=== PATIENT | male | born 1940 | race Caucasian/White ===

== ENCOUNTER 2020-07-07 05:21 | Inpatient (IN) | payer MEDICARE, BC ==
[2020-07-07] MEDS ORDERED: Morphine 4 MG/ML VIAL ONE (05:57)
[2020-07-07] MEDS ORDERED: Ondansetron PF 4 MG/2 ML Vial ONE (05:58)
[2020-07-07 06:00] LABS: #Eosinphils 0.2 thou/uL (0.0-0.7); #Lymphocytes 1.2 thou/uL (1.20-3.40); #Monocytes 0.7 thou/uL (0.11-0.59); #Neutrophils 13.7 thou/uL (1.40-6.50); %Basophils 0.2 % (0.0-1.0); %Lymphocytes 7.5 % (21.0-51.0); %Monocytes 4.6 % (0.0-10.0); %Neutrophils 86.7 % (42.0-75.0); Hemoglobin 14.4 g/dL (14.0-18.0); Mean Corpuscular Volume 90.7 fL (78.0-98.0); Mean Platelet Volume 7.5 fL (7.4-10.4); Platelet Count 217 thou/uL (130-400); RBC Distribution Width 12.6 % (11.5-14.5); Red Blood Cell (RBC) Count 4.81 mill/uL (4.70-6.10); White Blood Cell (WBC) Count 15.8 thou/uL (4.8-10.8)
[2020-07-07 06:21] LABS: ALT (SGPT) 307 U/L (8-55); AST (SGOT) 127 U/L (5-34); Albumin 4.1 g/dL (3.4-4.8); Alkaline Phosphatase 277 U/L (40-110); Anion Gap 15 mmol/L (10-20); BUN (Urea Nitrogen) 16 mg/dL (8.4-25.7); Bilirubin, Total 5.9 mg/dL (0.2-1.2); Calc. Creatinine Clearance 0 mL/min (70-130); Calcium 9.5 mg/dL (7.8-10.44); Carbon Dioxide 24 mmol/L (23-31); Chloride 102 mmol/L (98-107); Globulin 2.8 g/dL (2.4-3.5); Glucose 133 mg/dL (83-110); Potassium 3.7 mmol/L (3.5-5.1); Protein, Total 6.9 g/dL (5.8-8.1); Sodium 137 mmol/L (136-145)
[2020-07-07] MEDS ORDERED: diphenhydrAMINE 50 MG/ML VIAL ONE ×2 (06:35→09:33)
[2020-07-07 06:47] LABS: Lipase 11848 U/L (8-78)
[2020-07-07] MEDS ORDERED: Ondansetron PF 4 MG/2 ML Vial IVP PRN (09:20)
[2020-07-07] MEDS ORDERED: Ondansetron ODT 4 MG TAB PO PRN (09:20)
[2020-07-07] MEDS ORDERED: HYDROcodone/Acetaminophen 5/325 mg Tablet PO PRN ×2 (09:20)
[2020-07-07] MEDS ORDERED: Acetaminophen 650 MG Suppository PR PRN (09:20)
[2020-07-07] MEDS ORDERED: Acetaminophen 325 MG TAB PO PRN (09:20)
--- NOTE | 2020-07-07 09:24 | ULT ---
RIGHT UPPER QUADRANT ULTRASOUND: Date: 07/07/2020 INDICATION: Right upper quadrant pain. COMPARISON: Prior exam dated 12/07/2015. FINDINGS: There is gallbladder sludge with mild wall thickening present. No pericholecystic fluid is evident. N o sonographic Bettencourt's sign is reported; however, the patient is tender over the epigastric region. T he patient has had pain medication. The common bile duct is enlarged measuring 9.4 mm. There is a sma ll cystic lesion in the region of the pancreatic head measuring 1.3 x 1.3 cm, not previously seen. Ri ght kidney measures 11.7 cm without hydronephrosis or focal renal lesion. IMPRESSION: 1. Gallbladder sludge with new prominence of the common bile duct suspicious for distal obstructing process. Recommend further evaluation with consideration for a MRCP with and without contrast for fur ther evaluation. There is an additional cystic lesion seen within the pancreatic head not definitely seen on the comparison examination that can be furthered assessed on this exam. 2. Gallbladder sludge with gallbladder wall thickening with reported negative Bettencourt's sign; however , pain medication had been given to this patient. Findings are equivocal by right upper quadrant ultr asound for acute cholecystitis. POS: BH
--- NOTE | 2020-07-07 09:37 | PDOC.HHP ---
Hospitalist HPI abd pain History of Present Illness: Case of an 79y/o male with a pmhx of hld, htn and esophageal stricture who comes to hospital due to abdominal pain. patient states he was on his usual state of health until this last month when he started with some intermittent abdominal pain. since pain started patient refers has gotten more intense and occurring more frequently, is concentrated on epigastric area and radiates to R upper quadrant, he reports the intensity of pain varies from 3-10. has had some associated nausea, self provoked vomiting, denies fever chills diarrhea or dysuria. patient refers had a schedule EGD on the Jul, set up by pcp due to concerns this could be related to his stricture but yesterday nigh his pain was too intense for which he decided to comes to hospital for evaluation. at ed patient was diagnosed with pancreatitis and hospitalist was called for further evaluation and management. patient does reports that since yesterday he has started with some rash and itchiness Past History: PMHx: as above PSHx:none FHx: htn Social: denies alcohol tabacco or any other drug Hospitalist HPI ROS All other systems reviewed; all pertinent +/- noted in HPI/Subj Hospitalist Exam General Appearance: NAD, awake alert Eye: PERRL, anicteric sclera ENT: normocephalic atraumatic, no oropharyngeal lesions Neck: supple, symmetric, no JVD, no thyromegaly Heart: RRR, no murmur, no gallops, no rubs Respiratory: CTAB, no wheezes, no rales, no ronchi Gastrointestinal: soft, non-distended, normal bowel sounds, no palpable masses, tender to palpation Extremities: no cyanosis, no clubbing, no edema Skin: normal turgor, no lesions, no rashes Neurological: cranial nerve grossly intact, normal sensation to touch, no weakness Musculoskeletal: normal tone, normal strength, no muscle wasting Psychiatric: normal affect, normal behavior, A&O x 3 Hospitalist Results Result Diagrams: 07/07/20 05:37 07/07/20 05:37 Lab results: Laboratory Last Values WBC 15.8 thou/uL (4.8-10.8) H 07/07/20 05:37 RBC 4.81 mill/uL (4.70-6.10) 07/07/20 05:37 Hgb 14.4 g/dL (14.0-18.0) 07/07/20 05:37 Hct 43.6 % (42.0-52.0) 07/07/20 05:37 MCV 90.7 fL (78.0-98.0) 07/07/20 05:37 MCH 30.0 pg (27.0-31.0) 07/07/20 05:37 MCHC 33.0 g/dL (32.0-36.0) 07/07/20 05:37 RDW 12.6 % (11.5-14.5) 07/07/20 05:37 Plt Count 217 thou/uL (130-400) 07/07/20 05:37 MPV 7.5 fL (7.4-10.4) 07/07/20 05:37 Neutrophils % 86.7 % (42.0-75.0) H 07/07/20 05:37 Lymphocytes % 7.5 % (21.0-51.0) L 07/07/20 05:37 Monocytes % 4.6 % (0.0-10.0) 07/07/20 05:37 Eosinophils % 1.0 % (0.0-10.0) 07/07/20 05:37 Basophils % 0.2 % (0.0-1.0) 07/07/20 05:37 Neutrophils # 13.7 thou/uL (1.40-6.50) H 07/07/20 05:37 Lymphocytes # 1.2 thou/uL (1.20-3.40) 07/07/20 05:37 Monocytes # 0.7 thou/uL (0.11-0.59) H 07/07/20 05:37 Eosinophils # 0.2 thou/uL (0.0-0.7) 07/07/20 05:37 Basophils # 0.0 thou/uL (0.0-0.2) 07/07/20 05:37 Sodium 137 mmol/L (136-145) 07/07/20 05:37 Potassium 3.7 mmol/L (3.5-5.1) 07/07/20 05:37 Chloride 102 mmol/L (98-107) 07/07/20 05:37 Carbon Dioxide 24 mmol/L (23-31) 07/07/20 05:37 Anion Gap 15 mmol/L (10-20) 07/07/20 05:37 BUN 16 mg/dL (8.4-25.7) 07/07/20 05:37 Creatinine 0.97 mg/dL (0.7-1.3) 07/07/20 05:37 Estimated GFR (MDRD) 75 07/07/20 05:37 Glucose 133 mg/dL (83-110) H 07/07/20 05:37 Calcium 9.5 mg/dL (7.8-10.44) 07/07/20 05:37 Total Bilirubin 5.9 mg/dL (0.2-1.2) H 07/07/20 05:37 AST 127 U/L (5-34) H 07/07/20 05:37 ALT 307 U/L (8-55) H 07/07/20 05:37 Alkaline Phosphatase 277 U/L (40-110) H 07/07/20 05:37 Troponin I 0.026 ng/mL (< 0.028) 07/07/20 05:37 Serum Total Protein 6.9 g/dL (5.8-8.1) 07/07/20 05:37 Albumin 4.1 g/dL (3.4-4.8) 07/07/20 05:37 Globulin 2.8 g/dL (2.4-3.5) 07/07/20 05:37 Albumin/Globulin Ratio 1.5 g/dL (1.2-2.2) 07/07/20 05:37 Lipase 53782 U/L (8-78) H 07/07/20 05:37 Hospitalist H&P A/P (1) Acute pancreatitis Code(s): K85.90 - ACUTE PANCREATITIS WITHOUT NECROSIS OR INFECTION, UNSP Status: Acute (2) HLD (hyperlipidemia) Code(s): E78.5 - HYPERLIPIDEMIA, UNSPECIFIED Status: Acute (3) HTN (hypertension) Code(s): I10 - ESSENTIAL (PRIMARY) HYPERTENSION Status: Acute (4) Nausea and vomiting Code(s): R11.2 - NAUSEA WITH VOMITING, UNSPECIFIED Status: Acute (5) Esophageal stricture Code(s): K22.2 - ESOPHAGEAL OBSTRUCTION Status: Acute Plan: Case of an 79y/o male who presents with acute pancreatitis likely secondary to biliary sludge acute pancreatitis - lipase in the 11ks - likely secondary to biliary sludge - pain management - bowel rest - npo - gi consult - Gen surgeon consult - will order lipid panel, no hx of alcohol use - abdominal us showed biliary sluged as per ED physician, pending official read - hida scan htn - prn labetalol - continue home meds when able to tolerate po hld - continue home meds when able to tolerate po n+v - prn symptomatic tx
[2020-07-07 09:53] LABS: Cardiac Risk 2.6 (Less than 4.5)
--- NOTE | 2020-07-07 10:01 | CT ---
CT Abdomen Pelvis W Con: 07/07/2020 9:30 AM CLINICAL INFORMATION: Epigastric and right upper quadrant abdominal pain for a month with occasional vomiting COMPARISON: Gallbladder ultrasound 07/07/2020 TECHNIQUE: Multiple contiguous axial images were obtained and a CT of the abdomen and pelvis with IV contrast. C oronal and sagittal reformats were performed. FINDINGS: Lower Chest: Diffuse increased interstitial lung markings along the periphery. Abdomen: Liver: within normal limits. Bile Ducts: The common bile duct is enlarged measuring 10 mm. There appear to be 2 filling defects in the distal common bile duct that are round in appearance. These could represent gallstones within the common bile duct. Gallbladder: No calcified gallstones. Normal caliber wall. Pancreas: within normal limits. Spleen: within normal limits. Adrenals: 2.8 cm left adrenal mass. Kidneys: within normal limits. Pelvis: Reproductive Organs: Prostate is enlarged. Ureters: within normal limits. Bladder: within normal limits. Peritoneum: No ascites or free air, no fluid collection. Bowel: Normal caliber. Normal appendix. Mesentery and Retroperitoneum: No enlarged mesenteric or retroperitoneal lymph nodes. Vessels: Atherosclerotic calcifications. Abdominal Wall: within normal limits. Bones: Degenerative changes in the spine. IMPRESSION: 1. Enlargement of the common bile duct with apparent filling defects. An MRCP is recommended for furt her evaluation. 2. Left adrenal mass. The MRI should be performed of the abdomen without and with contrast so the adr enal mass can be assessed further
[2020-07-07] MEDS ORDERED: Iopamidol-370 76% 500 ML 1 ML ONE (10:27)
[2020-07-07] MEDS ORDERED: Magnevist 469MG/ML 20 ML VIAL ONE (10:43)
[2020-07-07 10:48] VITALS: BMI 30.2
[2020-07-07] MEDS: Sodium Chloride 0.9% 1,000 ML IV SCH ×4 (11:14→20:30)
[2020-07-07] MEDS ORDERED: Sodium Chloride 0.9% 1,000 ML IV SCH ×2 (12:00→13:00)
[2020-07-07 12:07] LABS: Bacteria/HPF None Seen HPF (None Seen); Bilirubin 1+ (Negative); Blood, Urine Negative (Negative); Clarity Clear (Clear); Glucose, Urine (Dipstick) Normal (Negative); Ketone, Urine Negative (Negative); Leukocyte Negative Leu/uL (Negative); Nitrite Negative (Negative); Protein, Urine (Dipstick) Negative (Neg-Trace); RBC/HPF 0-3 HPF (0-3); Squamous Epithelial None Seen HPF (0-3); Urobilinogen 3 mg/dL (Less than 2); WBC/HPF 0-3 HPF (0-3); pH, Urine 6.5 (5.0-9.0)
[2020-07-07 12:09] LABS: Specific Gravity, Urine Greater than 1.060 (1.002-1.036)
[2020-07-07 12:11] LABS: Urine Culture Reflex No No
[2020-07-07] MEDS: diphenhydrAMINE 12.5 MG/5 ML UDCUP PO PRN (13:01)
[2020-07-07 15:44] LABS: Hemoglobin 12.8 g/dL (14.0-18.0); Mean Corpuscular HGB CONC 33.8 g/dL (32.0-36.0); Mean Corpuscular Volume 91.7 fL (78.0-98.0); Mean Platelet Volume 7.6 fL (7.4-10.4); Platelet Count 163 thou/uL (130-400); RBC Distribution Width 12.6 % (11.5-14.5); Red Blood Cell (RBC) Count 4.12 mill/uL (4.70-6.10); White Blood Cell (WBC) Count 10.2 thou/uL (4.8-10.8)
[2020-07-07 15:52] LABS: Lymphocytes 9 % (21-51); MDiff Complete? YES; Monocytes 8 % (0-10); Neutrophil 82 % (42-75); Platelet Morphology Comment Appears Adequate; RBC Morphology Normal
[2020-07-07 16:00] LABS: ALT (SGPT) 223 U/L (8-55); AST (SGOT) 84 U/L (5-34); Albumin 3.4 g/dL (3.4-4.8); Alkaline Phosphatase 233 U/L (40-110); Anion Gap 12 mmol/L (10-20); BUN (Urea Nitrogen) 14 mg/dL (8.4-25.7); Bilirubin, Total 5.1 mg/dL (0.2-1.2); Calc. Creatinine Clearance 89 mL/min (70-130); Calcium 8.5 mg/dL (7.8-10.44); Carbon Dioxide 25 mmol/L (23-31); Chloride 106 mmol/L (98-107); Globulin 2.3 g/dL (2.4-3.5); Glucose 86 mg/dL (83-110); Potassium 3.9 mmol/L (3.5-5.1); Protein, Total 5.7 g/dL (5.8-8.1); Sodium 139 mmol/L (136-145)
[2020-07-07 16:15] LABS: Lipase 3166 U/L (8-78)
--- NOTE | 2020-07-07 17:59 | MRI ---
MRI AND MRCP ABDOMEN WITH AND WITHOUT CONTRAST: 07/07/20 HISTORY: 79-year-old male with abdominal pain. Abnormal CT and abnormal ultrasound earlier today. FINDINGS: Gallbladder has diffuse fluid signal surrounding the nguyen. This could be part of edema within the wa ll or pericholecystic fluid. No gallstones identified within the gallbladder lumen. Gallbladder lumin al distention is mild. There is diffusely increased enhancement of thickened gallbladder wall. There is no high grade intrahepatic biliary ductal dilation. There is diffuse mild dilation of the common hepatic duct and common bile duct. There are two filling defects in the inferior aspect of the common bile duct. At the ampulla, there is an approximately 10 x 9 mm focal signal void which is suspicious for a stone. Slightly superior to that, by a distance o f 1 cm, there is another such finding measuring approximately 5 x 5 mm. These correspond to the filli ng defect seen on the recent CT. No other abnormality of the liver, bilateral kidneys, pancreas, or right adrenal. The enhancing left 2.5 cm adrenal mass demonstrates signal dropout on the out of phase scan, consiste nt with an adrenal adenoma. No pancreatic ductal dilation. No splenomegaly or hepatomegaly. IMPRESSION: 1. choledocholithiasis. 2. suspicious for acute cholecystitis. POS: JIN
[2020-07-07] MEDS: Famotidine/PF 20 mg/2ml Vial SLOW IVP SCH (20:30)
[2020-07-07] MEDS: Labetalol HCl 100 MG/20 ML VIAL SLOW IVP PRN (20:35)
--- NOTE | 2020-07-07 22:38 | CON ---
DATE OF CONSULTATION: 07/07/2020 REASON FOR CONSULT: Pancreatitis. HISTORY OF PRESENT ILLNESS: Mr. Lea is a 79-year-old gentleman who for the past several months has been having pain when he eats, in the epigastric area, sometimes this occurs while eating and he has felt food may be getting stuck, but other times it is happening in the middle of night several hours after eating. He had symptoms like this back in 2016 and had a normal EGD. More recently, the symptoms have been worse in the past few months. He was going to see Dr. Pena for possible upper endoscopy. He ultimately came to the emergency room this morning at about 8 for severe epigastric and right upper quadrant pain. It was about the worst it has ever been last night when it started after eating, and finally he came to the emergency room. Here he was found to have pancreatitis and elevated liver enzymes. An ultrasound has shown a dilated bile duct and probable stones and sludge. A CAT scan has shown a normal pancreas, a 2.8 cm left adrenal mass, possible stones in the common bile duct and gallstones. In talking with the patient, he has lost some weight in the past several months. His just a few months ago and he has been quite depressed. He thinks he has esophageal stricture, and him and his daughter talk about that a lot because one of his other daughters has that problem after a bariatric surgery, but he has never had an upper endoscopy except for his only upper endoscopy in 2016 that was normal. Presently, his pain is better than when he came in. He only received 400 mL bolus in the ER and 100 mL an hour on admission. I then bolused him a liter earlier when I had to call for consult. He is getting 250 mL an hour now. He has voided about 30 minutes ago, but the urine is dark. He also notes his skin is itchy. He denies any fever or chills, but his pain is much better. He has not had any narcotics since about 8 this morning. PAST MEDICAL HISTORY: Hypertension. PAST SURGICAL HISTORY: Tonsillectomy, colonoscopy for screening in 2016 that was normal. He has been a little bit depressed lately as his . He does not drink. He still works. ALLERGIES: NONE KNOWN. MEDICATIONS: At home include: 1. Triamterene. 2. Flomax. 3. Zocor. 4. Multivitamin. 5. Toprol. 6. Nexium. 7. Aspirin. Medicines presently: 1. Lovenox. 2. Pepcid. 3. Labetalol. 4. P.r.n. morphine. 5. P.r.n. Zofran. 6. P.r.n. normal saline at 250 an hour. After the second liter it will go down to 200 an hour. PHYSICAL EXAMINATION: VITAL SIGNS: Pulse 57, blood pressure 159/72. GENERAL: He is resting comfortably in bed. He is mildly icteric. He is in no distress. LUNGS: Clear except for slight crackles in the bases. NECK: There is no JVD. HEART: Regular rate and rhythm without clicks or murmurs. ABDOMEN: Soft and nontender. There is no rebound. There is no guarding. It is not distended. He has no palpable hepatosplenomegaly. EXTREMITIES: No clubbing, cyanosis, or edema. SKIN: Warm and dry. Without rash or lesions. LABORATORY DATA: White count 15.8, hemoglobin 14.3, platelets 217. Sodium 137, potassium 3.7, BUN and creatinine are 16 and 0.9. Bilirubin 5.9, AST 127, ALT 307, alkaline phosphatase 237. Lipase 11,848 . TSH normal. Triglycerides normal. ASSESSMENT: Biliary pancreatitis, seemingly improving. RECOMMENDATIONS: 1. Resuscitate with 4 L of fluid, then 150 an hour. 2. Repeat labs this afternoon to make sure we are going in the right direction. 3. Surgical consultation tomorrow for biliary pancreatitis. We will follow along with you. If the patient shows signs of worsening or decompensation in the first 12 to 24 hours with cholangitis, would intervene with emergent ERCP, otherwise, we will see if he passes the stone and he is going to need a laparoscopic cholecystectomy before he goes home. Job ID: [id number]
[2020-07-07 23:33] LABS: SARS-CoV-2 PCR by NAA Not Detected (NotDetected)
--- NOTE | 2020-07-07 23:42 | CON ---
DATE OF CONSULTATION: 07/07/2020 REQUESTING PHYSICIAN: [facility]. SURGICAL ATTENDING: Dr. Latif. REASON FOR CONSULTATION: Acute pancreatitis. HISTORY OF PRESENT ILLNESS: This is a 79-year-old gentleman with past medical history of hypertension. The patient states that he's had abdominal pain off and on for several years, but the last 3-4 weeks, he has had more episodes. The patient states that his initial episode of abdominal pain was after eating a hamburger. The patient does report a decreased appetite over the last couple of months after his end of April from COVID-19. The patient does report an approximately 8-pound weight loss. The patient describes his pain being a sharp epigastric pain after eating. The patient states that it feels like food is getting stuck sometimes after eating. His last episode was last night at approximately 1:00 in the morning where he had severe epigastric pain, lasting several hours, in which he went to the emergency room for evaluation. The patient's primary care physician had scheduled him on July 12 to have an EGD done. The patient denies any fever or chills. The patient did have one episode of vomiting last night, but states that this was self-induced as he felt like maybe food was stuck. The patient also reports itching sensation to scalp that moves all the way down to his chest, which started today. The patient states that he normally has a bowel movement every day, but since he has not been eating as much, he is not having regular bowel movements. He has not had much to eat over the last 2 days due to the pain. The patient reports that his pain is currently very mild and rates at a 1/10 in the epigastric area and right upper quadrant. PAST MEDICAL HISTORY: BPH, hypertension. PAST SURGICAL HISTORY: Tonsillectomy, colonoscopy screening in 2016. ALLERGIES: NO KNOWN DRUG ALLERGIES. SOCIAL HISTORY: Denies tobacco use, denies illicit drug use, reports very rare alcohol use. MEDICATIONS: 1. Flomax. 2. Triamterene. 3. Zocor. 4. Multivitamin. 5. Toprol. 6. Nexium. 7. Aspirin. REVIEW OF SYSTEMS: A 10-point review of systems is negative unless otherwise indicated in the above HPI. PHYSICAL EXAMINATION: VITAL SIGNS: Temperature 98.3, pulse 53, respirations 16, SpO2 of 96% on room air, blood pressure 170/74. GENERAL: Well-appearing elderly male, awake, alert, in no distress. HEENT: Mild scleral icterus, pupils are equal bilateral. Head is normocephalic, mucous membranes moist. NECK: Normal range of motion of neck, trachea midline, no JVD. RESPIRATORY: Good inspiratory and expiratory effort, bilateral breath sounds clear, no wheezing rales or rhonchi. CARDIAC: Regular rate, regular rhythm, no murmurs, no pedal edema. ABDOMEN: Soft, nontender, no peritoneal signs, nondistended. Active bowel sounds. EXTREMITIES: Moves all extremities. Neurovascularly intact x4, no edema. NEUROLOGIC: No focal deficits, strength 5/5 in all extremities, GCS 15. SKIN: Warm, dry, no rash or lesions. LABORATORY DATA: WBC 10.2, RBC 4.12, hemoglobin 12.8, hematocrit 37.8, platelets 163. Sodium 139, potassium 3.9, chloride 106, BUN 14, creatinine 0.94, estimated GFR 77, glucose 86, calcium 8.5, total bilirubin 5.1, AST 84, ALT 223, alkaline phos 233, serum total protein 5.7, lipase 3,166, decreased from 11,848 yesterday. DIAGNOSTIC DATA: Abdominal ultrasound. Impression: Gallbladder sludge with new prominence of common bile duct suspicious for a distal obstructing process. Cystic lesion seen within the pancreatic head, not definitely seen on the comparison examination. Gallbladder sludge with gallbladder wall thickening with reported negative Bettencourt's sign; however, pain medication had been given prior to exam. Abdominal MRI. Impression: Choledocholithiasis, suspicious for acute cholecystitis. ASSESSMENT: 1. Biliary pancreatitis, improving. 2. Choledocholithiasis. 3. Acute cholecystitis. PLAN: ERCP followed by laparoscopic cholecystectomy after pancreatitis resolves. The plan was made with Dr. Latif. The plan was also discussed with the patient. Job ID: [id number] [facility]
[2020-07-08] MEDS: Sodium Chloride 0.9% 1,000 ML IV SCH ×5 (05:46→22:41)
[2020-07-08 07:04] LABS: ALT (SGPT) 175 U/L (8-55); AST (SGOT) 55 U/L (5-34); Albumin 3.2 g/dL (3.4-4.8); Alkaline Phosphatase 208 U/L (40-110); Anion Gap 11 mmol/L (10-20); BUN (Urea Nitrogen) 18 mg/dL (8.4-25.7); Bilirubin, Total 2.4 mg/dL (0.2-1.2); Calc. Creatinine Clearance 100 mL/min (70-130); Calcium 8.1 mg/dL (7.8-10.44); Carbon Dioxide 25 mmol/L (23-31); Chloride 108 mmol/L (98-107); Globulin 2.4 g/dL (2.4-3.5); Glucose 78 mg/dL (83-110); Potassium 3.9 mmol/L (3.5-5.1); Protein, Total 5.6 g/dL (5.8-8.1); Sodium 140 mmol/L (136-145)
[2020-07-08 07:20] LABS: Lipase 1345 U/L (8-78)
[2020-07-08 08:07] LABS: Hemoglobin 12.2 g/dL (14.0-18.0); Lymphocytes 15 % (21-51); MDiff Complete? YES; Mean Corpuscular HGB CONC 34.9 g/dL (32.0-36.0); Mean Corpuscular Hemoglobin 32.6 pg (27.0-31.0); Mean Corpuscular Volume 93.5 fL (78.0-98.0); Mean Platelet Volume 7.6 fL (7.4-10.4); Monocytes 8 % (0-10); Neutrophil 74 % (42-75); Platelet Count 150 thou/uL (130-400); RBC Distribution Width 12.6 % (11.5-14.5); RBC Morphology Normal; Reactive Lymphocytes 1 % (0-10); Red Blood Cell (RBC) Count 3.75 mill/uL (4.70-6.10); White Blood Cell (WBC) Count 6.9 thou/uL (4.8-10.8)
[2020-07-08] MEDS: Famotidine/PF 20 mg/2ml Vial SLOW IVP SCH ×2 (08:29→21:12)
[2020-07-08] MEDS ORDERED: Enoxaparin Sodium 40 MG/0.4 ML SYRINGE SC SCH (09:00)
[2020-07-08] MEDS ORDERED: Dexamethasone 20 MG/5 ML VIAL ONE (09:25)
[2020-07-08] MEDS ORDERED: Labetalol HCl 100 MG/20 ML VIAL ONE ×2 (09:25→19:01)
[2020-07-08] MEDS ORDERED: Lidocaine 1% PF 5 ML VIAL ONE (09:25)
[2020-07-08] MEDS ORDERED: Ondansetron PF 4 MG/2 ML Vial ONE (09:25)
[2020-07-08] MEDS ORDERED: PROPOFOL 200 MG/20 ML VIAL ONE (09:25)
[2020-07-08] MEDS ORDERED: Rocuronium Bromide 10 MG/ML (10ML VIAL) ONE (09:25)
[2020-07-08 10:06] LABS: INR-International Normal Ratio 1.2; Prothrombin Time 15.1 sec (12.0-14.7)
[2020-07-08] MEDS ORDERED: Iothalamate Meglumine 60% 50 ML VIAL FS ONE ×2 (12:52→16:10)
[2020-07-08] MEDS ORDERED: EPINEPHrine 1 MG/ML AMP ONE (12:52)
[2020-07-08] MEDS ORDERED: Bupivacaine 0.25% HCL 30 ML VIAL ONE (12:52)
--- NOTE | 2020-07-08 13:54 | PDOC.HOSPP ---
- Subjective Encounter Date: 07/08/20 Encounter Time: 13:52 Subjective: Appears comfortable, stated abdominal pain has resolved - Objective Vital Signs & Weight: Vital Signs (12 hours) Temp Pulse Resp BP Pulse Ox 07/08/20 12:14 98.0 F 56 L 18 174/72 H 98 07/08/20 08:35 97 07/08/20 08:28 168/74 H 07/08/20 08:00 97.5 F L 52 L 18 181/77 H 97 07/08/20 05:18 98.0 F 56 L 18 161/74 H 95 Weight Weight 217 lb I&O: 07/07/20 07/08/20 07/09/20 06:59 06:59 06:59 Intake Total 4860 Output Total 600 Balance 4260 Result Diagrams: 07/08/20 06:20 07/08/20 06:20 Additional Labs: Accuchecks 07/08/20 04:34 POC Glucose 79 Hospitalist ROS - Review of Systems Constitutional: denies: fever, chills, sweats, weakness, malaise, other Eyes: denies: pain, vision change, conjunctivae inflammation, eyelid inflammation, redness, other ENT: denies: ear pain, ear discharge, nose pain, nose discharge, nose congestion, mouth pain, mouth swelling, throat pain, throat swelling, other Respiratory: denies: cough, dry, shortness of breath, hemoptysis, SOB with excertion, pleuritic pain, sputum, wheezing, other Cardiovascular: denies: chest pain, palpitations, orthopnea, paroxysmal noc. dyspnea, edema, light headedness, other Gastrointestinal: denies: nausea, vomiting, abdominal pain, diarrhea, constipation, melena, hematochezia, other Musculoskeletal: denies: neck pain, shoulder pain, arm pain, back pain, hand pain, leg pain, foot pain, other Skin: denies: rash, lesions, dexter, bruising, other Neurological: denies: weakness, numbness, incoordination, change in speech, confusion, seizures, other - Medication Medications: Active Medications Generic Name Dose Route Start Last Admin Trade Name Freq PRN Reason Stop Dose Admin Diphenhydramine HCl 25 mg 07/07/20 09:24 07/07/20 13:01 Diphenhydramine 12.5 Mg/5 Ml Udcup PO 25 mg Q8H PRN Administration Itching Famotidine 20 mg 07/07/20 21:00 07/08/20 08:29 Famotidine/Pf 20 Mg/2ml Vial SLOW IVP 20 mg Q12HR MEI Administration Sodium Chloride 1,000 mls @ 200 mls/hr 07/07/20 17:00 07/08/20 13:35 Normal Saline 0.9% IV Not Given .Q5H MEI Labetalol HCl 20 mg 07/07/20 09:38 07/07/20 20:35 Labetalol Hcl 100 Mg/20 Ml Vial SLOW IVP 20 mg Q4H PRN Administration SBP Greater Than 170 Sodium Chloride 10 ml 07/07/20 21:00 07/08/20 08:32 Flush - Normal Saline 10 Ml Syringe IVF 10 ml Q12HR MEI Administration Hospitalist Exam Vitals: Vital Signs (12 hours) Temp Pulse Resp BP Pulse Ox 07/08/20 12:14 98.0 F 56 L 18 174/72 H 98 07/08/20 08:35 97 07/08/20 08:28 168/74 H 07/08/20 08:00 97.5 F L 52 L 18 181/77 H 97 07/08/20 05:18 98.0 F 56 L 18 161/74 H 95 Weight Weight 217 lb General Appearance: negative: NAD, awake alert, ill appearing Eye: negative: PERRL, anicteric sclera, scleral icterus ENT: negative: normocephalic atraumatic, no oropharyngeal lesions, moist mucosa, dry oral mucosa Neck: negative: supple, symmetric, no JVD, no thyromegaly, no lymphadenopathy, no carotid bruit, JVD Heart: negative: RRR, no murmur, no gallops, no rubs, normal peripheral pulses, irregular, diminshed peripheral pulses, murmur present, II/IV, III/IV Respiratory: negative: CTAB, no wheezes, no rales, no ronchi, normal chest expansion, no tachypnea, normal percussion, rales, rhonchi, tachypneic, wheezes Gastrointestinal: soft, non-tender, non-distended, normal bowel sounds Extremities: negative: no cyanosis, no clubbing, no edema, 1+ LE edema, 2+ LE edema, clubbing Skin: negative: normal turgor, no lesions, no rashes, tenting Hosp A/P - Plan #1. Gallstone pancreatitis -Symptoms resolved -General surgery and GI consulted for lap josefina and ERCP respectively 2. DVT prophylaxis -SCDs
[2020-07-08] MEDS ORDERED: Lidocaine 2% Jelly 5 ML TUBE ONE (14:00)
[2020-07-08] MEDS ORDERED: Fentanyl 100 MCG/2 ML VIAL ONE ×2 (14:00→20:21)
[2020-07-08] MEDS ORDERED: Indomethacin 50 MG SUPP ONE (16:10)
--- NOTE | 2020-07-08 16:22 | RAD ---
Exam: Intraoperative angiogram HISTORY: Evaluate for choledocholithiasis. Patient status post cholecystectomy Exposure: 0.644 mGy, 6 seconds FINDINGS: Contrast opacifies a prominent common bile duct. Initial image demonstrates a filling defec t at the distal aspect of the common bile duct. Second image does not demonstrate filling defect. IMPRESSION: Intraprocedure fluoroscopy as above.
[2020-07-08] MEDS ORDERED: SUGAMMADEX SODIUM 200 MG/2 ML VIAL ONE (17:58)
[2020-07-08] MEDS ORDERED: Ondansetron HCl/PF 4 MG/2 ML Vial IVP PRN (18:20)
[2020-07-08] MEDS ORDERED: Ketorolac Tromethamine 30 MG/ML VIAL IVP PRN (18:20)
[2020-07-08] MEDS ORDERED: Promethazine HCl 25 MG/ML VIAL SLOW IVP PRN (18:20)
[2020-07-08] MEDS ORDERED: Promethazine HCl 25 MG/ML VIAL IM PRN (18:20)
--- NOTE | 2020-07-08 18:23 | RAD ---
ERCP: 07/08/20 Two fluoroscopic images from the OR presented during ERCP procedure. INDICATIONS: Intraoperative imaging during ERCP procedure. FINDINGS/IMPRESSION: Mildly dilated common bile duct. There are filling defects in the lower common duct which are poorly defined but suggests common duct stones. POS: AGW
[2020-07-08] MEDS ORDERED: Ketorolac Tromethamine 30 MG/ML VIAL ONE (18:26)
[2020-07-08] MEDS: Labetalol HCl 100 MG/20 ML VIAL SLOW IVP PRN (19:03)
[2020-07-08] MEDS ORDERED: hydrALAZINE 20 MG/ML VIAL ONE (19:35)
[2020-07-08] MEDS: Morphine 2 MG/ML VIAL SLOW IVP PRN (21:10)
[2020-07-08] MEDS: diphenhydrAMINE 12.5 MG/5 ML UDCUP PO PRN (21:11)
--- NOTE | 2020-07-08 22:47 | OP ---
DATE OF PROCEDURE: 07/08/2020 PREOPERATIVE DIAGNOSES: 1. Acute cholecystitis with cholelithiasis. 2. Status post gallstone pancreatitis. 3. Suspected choledocholithiasis. POSTOPERATIVE DIAGNOSES: 1. Acute cholecystitis with cholelithiasis. 2. Choledocholithiasis. 3. Status post gallstone pancreatitis. PROCEDURES PERFORMED: Laparoscopic cholecystectomy with intraoperative cholangiogram. ANESTHESIA: General endotracheal. ESTIMATED BLOOD LOSS: 50 mL. FLUIDS GIVEN: 1000 mL crystalloids. COUNTS: Sponge and instrument counts were verified as correct x2. COMPLICATIONS: None apparent at the time of operation. TOTAL FLUOROSCOPY TIME: 6 seconds. 15 mL of Conray contrast was used. INDICATIONS FOR OPERATION: A 79-year-old man admitted with recurrent postprandial epigastric abdominal pain, which had failed to resolve with this episode. Clinical and radiographic examination were consistent with acute cholecystitis, cholelithiasis, and choledocholithiasis with gallstone pancreatitis. Overnight, his lipase is resolving. Abdominal pain is also improving. Decision was made to bring the patient to the operating room today for laparoscopic cholecystectomy with intraoperative cholangiogram. Findings are consistent with distended gallbladder in the usual anatomic location completely encased by omental adhesions. Cholangiogram also revealed distal common bile duct filling defect. DESCRIPTION OF OPERATION: Informed consent was obtained from the patient was brought to the operating room and placed in supine position. Following general anesthesia, abdomen was sterilely prepped and draped in usual fashion. The skin below the umbilicus was infiltrated with 0.25% Marcaine with epinephrine. A small curvilinear infraumbilical incision was made using 11 scalpel. Umbilical stalk was grasped with Melissa and elevated. Veress needle was inserted through the incision and placed in the peritoneal cavity through which the abdomen was insufflated with 3 L of CO2 gas. Intraabdominal pressure noted at 2 mmHg. Following abdominal insufflation, Veress needle was removed and a 5 mm trocar introduced using a Visiport under laparoscopy. Laparoscopy confirmed proper placement of the port, no injuries to underlying structures. Additional laparoscopy reveals the right upper quadrant completely encased by omental adhesions. Under the laparoscopy, a 12 mm epigastric and two 5 mm right lateral subcostal ports were placed after the overlying skin were infiltrated with 0.25% Marcaine with epinephrine. Appropriate incision was made. The patient was placed in a reverse Trendelenburg position, rotated to his left. I introduced a [place] dissector with cautery, using this to take down omental adhesions from the edge of the liver to expose a distended gallbladder. Prestige grasper introduced through the right lateral subcostal port grasping the fundus of the gallbladder, which was elevated cephalad. Omental adhesions were then completely taken down from the remainder of the gallbladder bluntly and bleeding points controlled using cautery. I then opened the peritoneum of the gallbladder infundibulum using a [place] dissector. The cystic duct and artery were individually dissected free from surrounding structures. Critical view of the triangle was obtained. The cystic artery was divided between clips, applying 2 clips proximally and 1 clip at the junction of the cystic artery and gallbladder. I then applied 1 clip at the junction of the cystic duct and gallbladder. A cystotomy was made proximal to this securing clip using Endo Shear. Cholangiocatheter was introduced into the pleural cavity and inserted into the cystic ductal lumen and secured with a single clip. Cholangiogram was completed using 15 mL of Conray contrast. Liver radicles well quite visible. There was; however, a filling defect of the distal common bile duct. Following cholangiography, the securing clip was removed and the cyst and the cholangiocatheter was removed from the abdominal cavity. The cystic duct was then divided between clips applying 2 clips proximally. The gallbladder itself was removed from the liver bed using cautery and delivered off the abdominal cavity using an EndoCatch. Operative site was inspected and there was minor oozing of venous blood from the gallbladder fossa. Hemostasis was readily achieved using Samantha. A #19 Martin drain introduced into the subhepatic space and allowed to exit the abdominal cavity through the right lateral subcostal port. The drain was secured to anterior abdominal wall using 2-0 silk suture. Fascia of the epigastric port was closed using 0 Vicryl suture and Endoclosure device under laparoscopy. The abdomen was desufflated. All ports and instruments removed and accounted for. Skin incisions closed using 4-0 Monocryl suture in subcuticular fashion. Dermabond was applied over incisional closure. The patient tolerated this operation without any apparent complication and was returned to the recovery room in satisfactory condition. Job ID: [id number]
--- NOTE | 2020-07-09 00:13 | OP ---
DATE OF PROCEDURE: 07/08/2020 PROCEDURES PERFORMED: Endoscopic retrograde cholangiopancreatography with sphincterotomy and removal of biliary calculi. INDICATION FOR PROCEDURE: Choledocholithiasis seen on intraoperative cholangiogram, elevated LFTs. DESCRIPTION OF PROCEDURE: After the risks and benefits of the procedure were explained to the patient including risks of bleeding, infection, perforation, reactions to anesthesia, aspiration, post-ERCP pancreatitis, and/or pain, informed consent was obtained. The patient was then taken from the OR suite directly to the endoscopy suite, where he had already been intubated and sedated with general anesthesia. The patient was then maneuvered into the prone position onto the fluoroscopy table in anticipation of the ERCP. Once in adequate position, the standard duodenoscope was introduced into the mouth with intubation of the esophagus, stomach, and the proximal small intestines with the findings listed below. The patient tolerated the procedure well with no immediate perioperative complications. On conclusion of the procedure, all equipment was removed from the patient and he was transferred to PACU in satisfactory condition. EGD FINDINGS: Limited views were obtained of the upper GI tract given the side-viewing nature of the duodenoscope. During the EGD portion of this exam of the mucosa seen, normal-appearing mucosa was seen in the proximal, mid, and distal esophagus. Normal-appearing mucosa was also seen in the gastric cardia, fundus, body, lesser curvature/incisura and antrum. Normal-appearing mucosa was also seen in the first and second portion of the duodenum. There were no evidence of erosions, ulcerations, mass lesions, or active/recent bleeding seen throughout the entire upper GI tract. ERCP FINDINGS: The ampulla was easily identified within the second portion of the duodenum and had a rounded bulbous-type appearance to it that was draining dark brown/black bile. The ampulla was then successfully cannulated using a 5-mm Ultratome sphincterotome with a guidewire successfully placed into the intrahepatic biliary tree. Once the guidewire was in place, a cholangiogram was performed, showing good filling of the intrahepatic and extrahepatic biliary tree with the common hepatic and common bile duct measuring approximately 8 to 9 mm in diameter. Possible small filling defects were seen in the distal common bile duct, consistent with findings on the intraoperative cholangiogram. Then, using the sphincterotome, a generous sphincterotomy was performed with good hemostasis achieved throughout the entire maneuver. On conclusion of this portion of the procedure, the sphincterotome was then removed for a 9 to 12 mm biliary balloon using exchange technique over the guidewire. Once the biliary balloon was in adequate position, it was advanced into the common bile duct using fluoroscopy imaging with the balloon expanded to 12 mm. Two yellow pigmented stones measuring 4 mm and 6 mm in size were successfully extracted from the distal common bile duct. Successive balloon sweeps were then unsuccessful at obtaining any additional debris despite advancing up to the hilum. An occlusion cholangiogram was then performed, again showing good filling of the intrahepatic and extrahepatic biliary tree with no additional filling defects seen during this portion. Upon deflating the balloon, good drainage from the biliary system was noted as well, at which point, the procedure was terminated and all equipment was removed from the patient. IMPRESSION: 1. Choledocholithiasis with successful extraction of the biliary calculi with biliary balloon after sphincterotomy. 2. Distal common bile duct measuring approximately 8 to 9 mm in size with smooth margins and no evidence of intraductal masses. RECOMMENDATIONS: 1. Would monitor the patient over the next 24 hours for possible post-ERCP pancreatitis. 2. Pain control per primary team. 3. Would continue to trend his LFTs to determine response to treatment. 4. Antibiotic choice per primary team. 5. To start the patient on a clear liquid diet and advance as tolerated. We will continue to follow. Please call with any questions. Job ID: [id number]
--- NOTE | 2020-07-09 00:25 | PDOC.BPN ---
- Brief Progress Note Encounter Date: 07/08/20 Encounter Time: 22:50 Patient was seen during evening rounds on the medical floor resting comfortably in no distress. No issues reported by the patients nurse. BP is elevated and patient is afebrile. Plan of care is unchanged. Restart Flomax and beta noel.
[2020-07-09] MEDS: Morphine 2 MG/ML VIAL SLOW IVP PRN (01:17)
[2020-07-09] MEDS: Sodium Chloride 0.9% 1,000 ML IV SCH ×2 (05:58→10:57)
[2020-07-09 06:23] LABS: #Lymphocytes 0.4 thou/uL (1.20-3.40); #Monocytes 0.5 thou/uL (0.11-0.59); #Neutrophils 7.7 thou/uL (1.40-6.50); %Eosinophils 0.1 % (0.0-10.0); %Lymphocytes 4.4 % (21.0-51.0); %Monocytes 6.1 % (0.0-10.0); %Neutrophils 89.4 % (42.0-75.0); Hemoglobin 12.5 g/dL (14.0-18.0); Mean Corpuscular HGB CONC 33.9 g/dL (32.0-36.0); Mean Corpuscular Hemoglobin 30.7 pg (27.0-31.0); Mean Corpuscular Volume 90.7 fL (78.0-98.0); Mean Platelet Volume 7.7 fL (7.4-10.4); Platelet Count 168 thou/uL (130-400); RBC Distribution Width 12.3 % (11.5-14.5); Red Blood Cell (RBC) Count 4.06 mill/uL (4.70-6.10); White Blood Cell (WBC) Count 8.6 thou/uL (4.8-10.8)
[2020-07-09 06:49] LABS: ALT (SGPT) 139 U/L (8-55); AST (SGOT) 60 U/L (5-34); Albumin 3.1 g/dL (3.4-4.8); Alkaline Phosphatase 214 U/L (40-110); Anion Gap 13 mmol/L (10-20); BUN (Urea Nitrogen) 21 mg/dL (8.4-25.7); Bilirubin, Direct 1.2 mg/dL (0.1-0.3); Bilirubin, Total 1.6 mg/dL (0.2-1.2); Calc. Creatinine Clearance 79 mL/min (70-130); Calcium 8.2 mg/dL (7.8-10.44); Carbon Dioxide 19 mmol/L (23-31); Chloride 110 mmol/L (98-107); Glucose 166 mg/dL (83-110); Lipase 83 U/L (8-78); Magnesium 1.8 mg/dL (1.6-2.6); Phosphorus 2.5 mg/dL (2.3-4.7); Potassium 4.1 mmol/L (3.5-5.1); Protein, Total 5.6 g/dL (5.8-8.1); Sodium 138 mmol/L (136-145)
[2020-07-09] MEDS ORDERED: Ibuprofen 100 MG/5 ML UDCUP PO PRN (08:00)
[2020-07-09] MEDS ORDERED: traMADol HCl 50 MG TAB PO PRN ×2 (08:01)
[2020-07-09] MEDS ORDERED: HYDROcodone/Acetaminophen 5/325 mg Tablet PO PRN (08:26)
[2020-07-09] MEDS: Triamterene/Hydrochlorothiazide 37.5 mg/25 mg Tablet PO SCH (10:15)
[2020-07-09] MEDS: Acetaminophen 500 MG TAB PO SCH ×3 (10:16→20:38)
[2020-07-09] MEDS: ceFAZolin 1 GM/D5W 1 GM in Premix Bag 1 BAG IVPB SCH ×2 (10:17→17:17)
[2020-07-09] MEDS: Famotidine/PF 20 mg/2ml Vial SLOW IVP SCH ×2 (10:18→20:38)
[2020-07-09] MEDS: Tamsulosin HCl 0.4 MG CAP PO SCH (10:18)
--- NOTE | 2020-07-09 11:45 | PDOC.HOSPP ---
- Subjective Encounter Date: 07/09/20 Encounter Time: 11:43 Subjective: Feeling better, abdominal pain resolved - Objective Vital Signs & Weight: Vital Signs (12 hours) Temp Pulse Resp BP Pulse Ox 07/09/20 04:00 98.2 F 60 18 159/73 H 99 07/09/20 00:40 98 F 55 L 18 159/72 H 94 L Weight Weight 217 lb I&O: 07/08/20 07/09/20 07/10/20 06:59 06:59 06:59 Intake Total 4860 2700 Output Total 600 90 40 Balance 4260 -90 2660 Result Diagrams: 07/09/20 05:42 07/09/20 05:42 Hospitalist ROS - Review of Systems Constitutional: denies: fever, chills, sweats, weakness, malaise, other Eyes: denies: pain, vision change, conjunctivae inflammation, eyelid inflammation, redness, other ENT: denies: ear pain, ear discharge, nose pain, nose discharge, nose congestion, mouth pain, mouth swelling, throat pain, throat swelling, other Respiratory: denies: cough, dry, shortness of breath, hemoptysis, SOB with excertion, pleuritic pain, sputum, wheezing, other Cardiovascular: denies: chest pain, palpitations, orthopnea, paroxysmal noc. dyspnea, edema, light headedness, other Musculoskeletal: denies: neck pain, shoulder pain, arm pain, back pain, hand pain, leg pain, foot pain, other Skin: denies: rash, lesions, dexter, bruising, other - Medication Medications: Active Medications Generic Name Dose Route Start Last Admin Trade Name Ronal PRN Reason Stop Dose Admin Acetaminophen 1,000 mg 07/09/20 09:00 07/09/20 10:16 Acetaminophen 500 Mg Tab PO 1,000 mg 0300,0900,1500,2100 MEI Administration Diphenhydramine HCl 25 mg 07/07/20 09:24 07/08/20 21:11 Diphenhydramine 12.5 Mg/5 Ml Udcup PO 25 mg Q8H PRN Administration Itching Famotidine 20 mg 07/07/20 21:00 07/09/20 10:18 Famotidine/Pf 20 Mg/2ml Vial SLOW IVP 20 mg Q12HR MEI Administration Cefazolin Sodium/Dextrose 1 gm 50 mls @ 100 mls/hr 07/09/20 09:00 07/09/20 10:17 / Device IVPB 07/10/20 01: 50 mls 0100,0900,1700 MEI Administration Labetalol HCl 20 mg 07/07/20 09:38 07/08/20 19:03 Labetalol Hcl 100 Mg/20 Ml Vial SLOW IVP 20 mg Q4H PRN Administration SBP Greater Than 170 Metoprolol Succinate 100 mg 07/09/20 09:00 07/09/20 10:18 Metoprolol Succinate Xl 100 Mg Tab PO 100 mg DAILY MEI Administration Ondansetron HCl 4 mg 07/07/20 09:20 07/08/20 21:24 Ondansetron Pf 4 Mg/2 Ml Vial IVP 4 mg Q6H PRN Administration Nausea/Vomiting Sodium Chloride 10 ml 07/07/20 21:00 07/09/20 10:18 Flush - Normal Saline 10 Ml Syringe IVF 10 ml Q12HR MEI Administration Tamsulosin HCl 0.4 mg 07/09/20 09:00 07/09/20 10:18 Tamsulosin Hcl 0.4 Mg Cap PO 0.4 mg DAILY MEI Administration Triamterene/Hydrochlorothiazide 1 tab 07/09/20 09:00 07/09/20 10:15 Triamterene/Hydrochlorothiazide 37.5 Mg/25 Mg Tablet PO 1 tab DAILY MEI Administration Hospitalist Exam Vitals: Vital Signs (12 hours) Temp Pulse Resp BP Pulse Ox 07/09/20 04:00 98.2 F 60 18 159/73 H 99 07/09/20 00:40 98 F 55 L 18 159/72 H 94 L Weight Weight 217 lb Eye: PERRL, anicteric sclera ENT: normocephalic atraumatic, no oropharyngeal lesions Neck: supple, no JVD Heart: RRR, no murmur Respiratory: CTAB Gastrointestinal: soft, non-tender, non-distended, normal bowel sounds Extremities: no cyanosis, no clubbing Hosp A/P - Plan #1. Gallstone pancreatitis -Status post laparoscopic cholecystectomy and ERCP with removal of stones from biliary tree -Symptoms resolved -LFTs trending down -Currently on clear liquid. Advance diet as tolerated -On cefazolin x3 doses 2. DVT prophylaxis -SCDs
--- NOTE | 2020-07-09 13:52 | PRG ---
DATE OF SERVICE: 07/09/2020 SUBJECTIVE: The patient was seen this morning during rounds. He was sitting up in a chair with no signs of acute distress. He reported that his pain is well controlled. He was tolerating a liquid diet. He has not had any solids yet. No bowel movement at this time. OBJECTIVE: VITAL SIGNS: Temperature 98.2, pulse 60, respirations 18, oxygen saturation 99% on room air, and blood pressure 159/73. GENERAL: Well-appearing elderly male, sitting up in chair with no signs of acute distress. PULMONARY: Equal chest rise and fall. Clear breath sounds bilaterally. No signs of acute respiratory distress. CARDIAC: Regular rate and rhythm. GI: Abdomen is soft, appropriately tender to palpation, nondistended. Right-sided FANNY drain with serosanguineous output in drain. EXTREMITIES: 2+ pulses in all extremities. Gross motor and sensation are intact. No significant swelling noted. NEUROLOGIC: GCS is 15. LABORATORY FINDINGS: White count 8.6, hemoglobin 12.5, hematocrit 36.8, platelets 168. Sodium 138, potassium 4.1, chloride 110, bicarb 29, BUN 21, creatinine 1.05, glucose 166, phosphorus 2.5, magnesium 1.9. Total bilirubin 1.6, AST 60, ALT 139, alkaline phosphatase 214. Lipase 83. DIAGNOSTIC FINDINGS: There are no new diagnostic findings to report. ASSESSMENT: 1. Postoperative day #1, status post laparoscopic cholecystectomy with IOC and ERCP with sphincterotomy and removal of biliary calculi. 2. Biliary pancreatitis, resolving. 3. History of hypertension, hyperlipidemia, and esophageal stricture. PLAN: Advance to regular diet. Discontinue IV fluids. Discontinue FANNY drain. Ambulation. Monitor for return of bowel function. The patient is ready for discharge from the standpoint of Surgery. The patient will follow up in 2 weeks in the Trauma Clinic with Dr. Latif with LFTs before the appointment. This information has been updated in the discharge plan in the computer. Trauma Surgery will continue to follow the patient while he is in the hospital. This patient was seen and evaluated by Dr. Latif and myself this morning during rounds. Job ID: [id number]
[2020-07-09] MEDS: guaiFENesin/Codeine 200 mg/20 mg 10 ml Cup PO PRN ×2 (17:13→22:35)
--- NOTE | 2020-07-09 19:30 | PRG ---
DATE OF SERVICE: 07/09/2020 REASON FOR CONSULTATION: Choledocholithiasis and biliary pancreatitis. SUBJECTIVE: The patient underwent ERCP yesterday with removal of a 4 mm and 6 mm yellow pigmented stone from the common bile duct with no immediate perioperative complications. Today, the patient states his pain is much better with no evidence of post ERCP pancreatitis. He has been able to tolerate a clear liquid diet thus far without any difficulty. Currently states that his pain is approximately 2 to 3/10 and seems to be centered more around the trocar sites from his laparoscopic cholecystectomy yesterday. Currently, he denies any nausea, vomiting, fevers, chills, hematemesis, melena, or hematochezia. OBJECTIVE: VITAL SIGNS: Temperature 97.5, pulse 53, blood pressure 153/72, respiratory rate 20, saturating 97% on room air. GENERAL: The patient was sitting in a chair at bedside, in no acute distress. Alert and oriented x4. CARDIOVASCULAR: Regular rate and rhythm. RESPIRATORY: Clear to auscultation bilaterally. ABDOMEN: Mild tenderness to palpation in the right upper quadrant. Normoactive bowel sounds. Soft, nondistended. EXTREMITIES: No cyanosis, clubbing, or edema. LABORATORY DATA: CBC with a white blood cell count of 8.6, hemoglobin 12.5, hematocrit 36.8, platelets 168. Chemistry with a sodium of 138, potassium 4.1, chloride 110, CO2 of 19, BUN 21, creatinine 1.05, glucose 166. AST 60, ALT 139, alkaline phosphatase 214, total bilirubin 1.6. IMAGING DATA: The patient underwent ERCP on July 08, 2020, which showed a bulbous ampulla on initial evaluation. He underwent sphincterotomy and balloon extraction of a 4 mm and 6 mm yellow pigmented stone with good biliary drainage seen at the end of the procedure. ASSESSMENT AND PLAN: The patient is a 79-year-old male with a past medical history of hypertension, presenting with cholecystitis and choledocholithiasis, now status post laparoscopic cholecystectomy and endoscopic retrograde cholangiopancreatography along with biliary pancreatitis. Choledocholithiasis/biliary pancreatitis: The patient initially presented with increased epigastric pain that had been intermittently occurring since 2016, but worsening within the last few months. On initial evaluation in the ER, he was found to have an elevated lipase and elevated LFTs concerning for biliary pancreatitis. CAT scan at that time showed a normal pancreas, but did show possible stones within the common bile duct as well as stones within the gallbladder. He subsequently underwent laparoscopic cholecystectomy and endoscopic retrograde cholangiopancreatography both on July 09, 2020, with removal of a 4 mm and 6 mm yellow pigmented stone on the endoscopic retrograde cholangiopancreatography. In the postoperative period, the patient has had significant improvement in his symptoms and has been able to tolerate a diet well. At this time, the patient is responding well to therapy thus far and with removal of the offending etiology for his biliary pancreatitis, could be considered for discharge soon. RECOMMENDATIONS: 1. Would continue to trend his LFTs daily to determine response to treatment. 2. Antibiotics per primary team. 3. Pain control per primary team. 4. We will continue to monitor for possible post ERCP pancreatitis, albeit unlikely at this time. We will sign off at this time. Please call with any additional questions. Job ID: [id number]
[2020-07-10] MEDS: ceFAZolin 1 GM/D5W 1 GM in Premix Bag 1 BAG IVPB SCH (00:39)
[2020-07-10 02:43] LABS: Bacteria/HPF None Seen HPF (None Seen); Bilirubin Negative (Negative); Blood, Urine 2+ (Negative); Clarity Clear (Clear); Glucose, Urine (Dipstick) Normal (Negative); Ketone, Urine Negative (Negative); Leukocyte Negative Leu/uL (Negative); Nitrite Negative (Negative); Protein, Urine (Dipstick) 10 mg/dL (Neg-Trace); RBC/HPF 21-50 HPF (0-3); Specific Gravity, Urine 1.025 (1.002-1.036); Squamous Epithelial None Seen HPF (0-3); Urobilinogen Normal mg/dL (Less than 2)
[2020-07-10 02:44] LABS: Urine Culture Reflex Yes Yes
[2020-07-10] MEDS: Acetaminophen 500 MG TAB PO SCH ×4 (04:42→21:02)
[2020-07-10] MEDS: Triamterene/Hydrochlorothiazide 37.5 mg/25 mg Tablet PO SCH (08:33)
[2020-07-10] MEDS: Atorvastatin Calcium 20 MG TAB PO SCH (08:33)
[2020-07-10] MEDS: Famotidine/PF 20 mg/2ml Vial SLOW IVP SCH ×2 (08:33→21:01)
[2020-07-10] MEDS: Tamsulosin HCl 0.4 MG CAP PO SCH (08:33)
[2020-07-10 09:34] LABS: ALT (SGPT) 100 U/L (8-55); AST (SGOT) 42 U/L (5-34); Albumin 3.4 g/dL (3.4-4.8); Alkaline Phosphatase 188 U/L (40-110); Anion Gap 11 mmol/L (10-20); BUN (Urea Nitrogen) 18 mg/dL (8.4-25.7); Bilirubin, Total 1.3 mg/dL (0.2-1.2); Calc. Creatinine Clearance 100 mL/min (70-130); Calcium 8.8 mg/dL (7.8-10.44); Carbon Dioxide 23 mmol/L (23-31); Chloride 106 mmol/L (98-107); Globulin 2.8 g/dL (2.4-3.5); Glucose 117 mg/dL (83-110); Potassium 3.6 mmol/L (3.5-5.1); Protein, Total 6.2 g/dL (5.8-8.1); Sodium 136 mmol/L (136-145)
[2020-07-10] MEDS ORDERED: Tamsulosin HCl 0.4 MG CAP PO SCH (10:00)
--- NOTE | 2020-07-10 10:24 | RAD ---
RADIOGRAPH CHEST 1 VIEW: DATE: 07/10/2020 TIME: 10:12 AM HISTORY: 79-year-old male with cough COMPARISON: 12/31/2015 FINDINGS: New finding of mild faint infiltrates at lateral aspect of right lower lung zone. Prominent interstit ial markings elsewhere, especially left lower lung zone. No gross consolidation. No pneumothorax. IMPRESSION: Mild right lower lung zone infiltrate suggestive of mild early pneumonia, perhaps COVID 19. Recommend follow-up.
[2020-07-10] MEDS ORDERED: Polyethylene Glycol 3350 17 GM Packet PO SCH (10:30)
--- NOTE | 2020-07-10 13:30 | PDOC.HOSPP ---
- Subjective Encounter Date: 07/10/20 Encounter Time: 09:00 Subjective: Abdominal pain resolved, but still having urinary retention. - Objective Vital Signs & Weight: Vital Signs (12 hours) Temp Pulse Resp BP Pulse Ox 07/10/20 08:00 96 07/10/20 07:20 98.2 F 58 L 17 160/78 H 96 07/10/20 06:03 98.0 F 60 18 161/77 H 93 L Weight Weight 217 lb I&O: 07/09/20 07/10/20 07/11/20 06:59 06:59 06:59 Intake Total 3150 320 Output Total 90 2200 Balance -90 950 320 Result Diagrams: 07/09/20 05:42 07/10/20 09:02 Hospitalist ROS - Review of Systems Constitutional: denies: fever, chills, sweats, weakness, malaise, other Eyes: denies: pain, vision change, conjunctivae inflammation, eyelid inflammation, redness, other ENT: denies: ear pain, ear discharge, nose pain, nose discharge, nose congestion, mouth pain, mouth swelling, throat pain, throat swelling, other Respiratory: denies: cough, dry, shortness of breath, hemoptysis, SOB with excertion, pleuritic pain, sputum, wheezing, other Cardiovascular: denies: chest pain, palpitations, orthopnea, paroxysmal noc. dyspnea, edema, light headedness, other Gastrointestinal: denies: nausea, vomiting, abdominal pain, diarrhea, constipation, melena, hematochezia, other Musculoskeletal: denies: neck pain, shoulder pain, arm pain, back pain, hand pain, leg pain, foot pain, other Skin: denies: rash, lesions, dexter, bruising, other - Medication Medications: Active Medications Generic Name Dose Route Start Last Admin Trade Name Freq PRN Reason Stop Dose Admin Acetaminophen 1,000 mg 07/09/20 09:00 07/10/20 08:33 Acetaminophen 500 Mg Tab PO 1,000 mg 0300,0900,1500,2100 MEI Administration Atorvastatin Calcium 20 mg 07/10/20 09:00 07/10/20 08:33 Atorvastatin Calcium 20 Mg Tab PO 20 mg DAILY MEI Administration Diphenhydramine HCl 25 mg 07/07/20 09:24 07/08/20 21:11 Diphenhydramine 12.5 Mg/5 Ml Udcup PO 25 mg Q8H PRN Administration Itching Famotidine 20 mg 07/07/20 21:00 07/10/20 08:33 Famotidine/Pf 20 Mg/2ml Vial SLOW IVP 20 mg Q12HR MEI Administration Guaifenesin/Codeine Phosphate 10 ml 07/09/20 10:06 07/09/20 22:35 Guaifenesin/Codeine 200 Mg/20 Mg 10 Ml Cup PO 10 ml Q6H PRN Administration Cough Labetalol HCl 20 mg 07/07/20 09:38 07/08/20 19:03 Labetalol Hcl 100 Mg/20 Ml Vial SLOW IVP 20 mg Q4H PRN Administration SBP Greater Than 170 Metoprolol Succinate 100 mg 07/09/20 09:00 07/10/20 08:33 Metoprolol Succinate Xl 100 Mg Tab PO 100 mg DAILY MEI Administration Ondansetron HCl 4 mg 07/07/20 09:20 07/08/20 21:24 Ondansetron Pf 4 Mg/2 Ml Vial IVP 4 mg Q6H PRN Administration Nausea/Vomiting Pantoprazole Sodium 40 mg 07/10/20 08:00 07/10/20 08:33 Pantoprazole 40 Mg Tab PO 40 mg QAM-WM MEI Administration Sodium Chloride 10 ml 07/07/20 21:00 07/10/20 08:34 Flush - Normal Saline 10 Ml Syringe IVF 10 ml Q12HR MEI Administration Triamterene/Hydrochlorothiazide 1 tab 07/09/20 09:00 07/10/20 08:33 Triamterene/Hydrochlorothiazide 37.5 Mg/25 Mg Tablet PO 1 tab DAILY MEI Administration Hospitalist Exam Vitals: Vital Signs (12 hours) Temp Pulse Resp BP Pulse Ox 07/10/20 08:00 96 07/10/20 07:20 98.2 F 58 L 17 160/78 H 96 07/10/20 06:03 98.0 F 60 18 161/77 H 93 L Weight Weight 217 lb General Appearance: NAD, awake alert Eye: PERRL ENT: normocephalic atraumatic Neck: supple, symmetric, no JVD Heart: RRR, no murmur, no gallops Respiratory: CTAB Gastrointestinal: soft, non-tender, non-distended Extremities: no cyanosis, no clubbing, no edema Skin: normal turgor Neurological: cranial nerve grossly intact Musculoskeletal: normal tone, normal strength Hosp A/P - Plan #1. Gallstone pancreatitis -Status post laparoscopic cholecystectomy and ERCP with removal of stones from biliary tree -Symptoms resolved -LFTs trending down -Tolerating regular diet adequately 2. History of BPH and urinary retention -Patient having marked urinary retention with PVR over 900 yesterday -Straight cath as needed for PVR above 300 -Restarted Flomax at an increased dose of 0.8 mg daily 3. DVT prophylaxis -SCDs We will discharge in 24 to 48 hours when retention improves with outpatient follow-up with his urologist.
--- NOTE | 2020-07-10 14:10 | PRG ---
DATE OF SERVICE: 07/10/2020 SUBJECTIVE: The patient was seen this morning during rounds. He was sitting up in a chair with no signs of acute distress. He reported that he has tolerated his breakfast and he is passing gas. He has not had a bowel movement yet. Abdomen is soft and nondistended, minimally tender at the surgical sites. The patient states that he has been having some difficulties voiding and the hospitalist team is increasing his Flomax. OBJECTIVE: VITAL SIGNS: Temperature 98.2, pulse 58, respirations 17, oxygen saturation 96% on room air, blood pressure 160/78. GENERAL: Well-appearing elderly male, sitting up in chair with no signs of acute distress. PULMONARY: Equal chest rise and fall. No signs of acute respiratory distress. CARDIAC: Regular rate and rhythm. GASTROINTESTINAL: Abdomen is soft, appropriately tender to palpation, and nondistended. Abdominal wounds are clean, dry, and intact with no signs of infection. LABORATORY FINDINGS: Sodium 136, potassium 3.6, chloride 106, bicarb 23, BUN 18, creatinine 0.83, glucose 117, total bilirubin 1.3, AST 42, ALT 100, alkaline phosphatase 118. DIAGNOSTIC FINDINGS: Chest x-ray completed this morning demonstrates mild right lower lobe zone infiltrate suggestive of mild early pneumonia, perhaps COVID-19. Recommended followup. ASSESSMENT: 1. Postoperative day #2 status post laparoscopic cholecystectomy with intraoperative cholangiogram as well as endoscopic retrograde cholangiopancreatography with sphincterotomy and extraction of biliary colic for biliary pancreatitis. 2. History of hyperlipidemia, hypertension, and esophageal stricture. PLAN: Continue current regular diet. Continue ambulating as much as possible. Continue to monitor for return of bowel function. Keep wounds clean and dry. Followup instructions have been placed in the patient's chart. As far as Surgery is concerned, the patient is ready for discharge. Additional urinary retention and cough workup by primary team. Surgery will continue to follow the patient as long as he is here. Job ID: [id number]
--- NOTE | 2020-07-10 15:17 | CT ---
CT THORAX NONCONTRAST: DATE: 07/10/2020 HISTORY: 79-year-old male with dyspnea and cough with right lower lung zone infiltrate on chest radiograph. COMPARISON: none FINDINGS: There are tiny bilateral pleural effusions. There is fluid tracking along a minor accessory fissure in the right lower lobe. There is a left adrenal adenoma. No pneumothorax. There are subpleural reticular densities peripherally throughout the bilateral mid and lower lung zon es, greatest at the lower lung zones. This, and adjacent mild, thin, broad based pulmonary parenchymal densities at the subpleural portions of the bilateral lower lobes, right greater than lef t, account for the findings on the recent chest radiograph. There is no consolidation. No thoracic aortic aneurysm. No cardiomegaly. No mediastinal lymphadenopa thy. Trachea and major bronchi are patent and clear. There is a single, approximately 2 cm groundglass focal pulmonary lesion at the medial aspect of the anterior segment of left upper lobe. IMPRESSION: 1) no convincing evidence of COVID 19 pneumonia. 2) no consolidation, and no convincing evidence of bacterial pneumonia. 3) the findings on the chest radiograph are caused by a combination of lower lung zone dominant subpl eural reticular densities, tiny bilateral pleural effusions with thin layer of adjacent minimal subpleural subsegmental atelectasis, and what appears to be a small amount of fluid in the right lowe r lobe accessory fissure. 4) the subpleural reticular densities raise the possibility of a idiopathic pulmonary fibrosis/usual interstitial pneumonia. 5) a single left upper lobe small groundglass nodule, nonspecific.
[2020-07-10] MEDS: Enoxaparin Sodium 40 MG/0.4 ML SYRINGE SC SCH (21:01)
[2020-07-10] MEDS: Senokot S 8.6-50 MG TAB PO SCH (21:01)
[2020-07-10] MEDS: Labetalol HCl 100 MG/20 ML VIAL SLOW IVP PRN (21:16)
[2020-07-11] MEDS: Acetaminophen 500 MG TAB PO SCH ×4 (04:22→20:41)
[2020-07-11 08:08] LABS: #Eosinphils 0.1 thou/uL (0.0-0.7); #Monocytes 0.8 thou/uL (0.11-0.59); #Neutrophils 6.8 thou/uL (1.40-6.50); %Basophils 0.4 % (0.0-1.0); %Eosinophils 1.6 % (0.0-10.0); %Lymphocytes 11.5 % (21.0-51.0); %Monocytes 8.6 % (0.0-10.0); %Neutrophils 77.9 % (42.0-75.0); Hemoglobin 12.3 g/dL (14.0-18.0); Mean Corpuscular HGB CONC 34.1 g/dL (32.0-36.0); Mean Corpuscular Hemoglobin 31.3 pg (27.0-31.0); Mean Corpuscular Volume 91.9 fL (78.0-98.0); Mean Platelet Volume 7.7 fL (7.4-10.4); Platelet Count 198 thou/uL (130-400); RBC Distribution Width 12.4 % (11.5-14.5); Red Blood Cell (RBC) Count 3.92 mill/uL (4.70-6.10); White Blood Cell (WBC) Count 8.7 thou/uL (4.8-10.8)
[2020-07-11] MEDS: Atorvastatin Calcium 20 MG TAB PO SCH (08:08)
[2020-07-11] MEDS: Tamsulosin HCl 0.4 MG CAP PO SCH (08:08)
[2020-07-11] MEDS: Famotidine/PF 20 mg/2ml Vial SLOW IVP SCH (08:08)
[2020-07-11] MEDS: Senokot S 8.6-50 MG TAB PO SCH ×2 (08:09→20:39)
[2020-07-11] MEDS: Triamterene/Hydrochlorothiazide 37.5 mg/25 mg Tablet PO SCH (08:09)
[2020-07-11] MEDS: Polyethylene Glycol 3350 17 GM Packet PO SCH (08:09)
[2020-07-11] MEDS: Labetalol HCl 100 MG/20 ML VIAL SLOW IVP PRN (08:19)
[2020-07-11 08:28] LABS: ALT (SGPT) 73 U/L (8-55); AST (SGOT) 29 U/L (5-34); Albumin 3.4 g/dL (3.4-4.8); Alkaline Phosphatase 174 U/L (40-110); Anion Gap 12 mmol/L (10-20); BUN (Urea Nitrogen) 13 mg/dL (8.4-25.7); Bilirubin, Total 1.2 mg/dL (0.2-1.2); Calc. Creatinine Clearance 107 mL/min (70-130); Calcium 8.8 mg/dL (7.8-10.44); Carbon Dioxide 24 mmol/L (23-31); Chloride 105 mmol/L (98-107); Globulin 2.9 g/dL (2.4-3.5); Glucose 117 mg/dL (83-110); Lipase 56 U/L (8-78); Magnesium 1.7 mg/dL (1.6-2.6); Phosphorus 3.1 mg/dL (2.3-4.7); Potassium 3.9 mmol/L (3.5-5.1); Protein, Total 6.3 g/dL (5.8-8.1); Sodium 137 mmol/L (136-145)
[2020-07-11] MEDS ORDERED: Dutasteride 0.5 MG CAP PO SCH (13:30)
--- NOTE | 2020-07-11 13:43 | PDOC.HOSPP ---
- Subjective Encounter Date: 07/11/20 Encounter Time: 13:40 Subjective: No complaints, sitting up in chair. Still having marked urinary retention - Objective Vital Signs & Weight: Vital Signs (12 hours) Temp Pulse Resp BP BP Pulse Ox 07/11/20 12:00 98.0 F 51 L 16 168/75 H 97 07/11/20 08:19 55 L 07/11/20 08:00 96 07/11/20 07:32 98.0 F 55 L 16 190/79 H 96 Weight Weight 217 lb I&O: 07/10/20 07/11/20 07/12/20 06:59 06:59 06:59 Intake Total 3150 1120 640 Output Total 2200 1496 820 Balance 652 -775 -875 Result Diagrams: 07/11/20 07:25 07/11/20 07:25 Hospitalist ROS - Review of Systems Constitutional: denies: fever, chills, sweats, weakness, malaise, other Eyes: denies: pain, vision change, conjunctivae inflammation, eyelid inflammation, redness, other ENT: denies: ear pain, ear discharge, nose pain, nose discharge, nose congestion, mouth pain, mouth swelling, throat pain, throat swelling, other Respiratory: denies: cough, dry, shortness of breath, hemoptysis, SOB with excertion, pleuritic pain, sputum, wheezing, other Cardiovascular: denies: chest pain, palpitations, orthopnea, paroxysmal noc. dyspnea, edema, light headedness, other Genitourinary: reports: retention Musculoskeletal: denies: neck pain, shoulder pain, arm pain, back pain, hand alan n, leg pain, foot pain, other Skin: denies: rash, lesions, dexter, bruising, other - Medication Medications: Active Medications Generic Name Dose Route Start Last Admin Trade Name Freq PRN Reason Stop Dose Admin Acetaminophen 1,000 mg 07/09/20 09:00 07/11/20 08:09 Acetaminophen 500 Mg Tab PO Not Given 0300,0900,1500,2100 MEI Atorvastatin Calcium 20 mg 07/10/20 09:00 07/11/20 08:08 Atorvastatin Calcium 20 Mg Tab PO 20 mg DAILY MEI Administration Diphenhydramine HCl 25 mg 07/07/20 09:24 07/08/20 21:11 Diphenhydramine 12.5 Mg/5 Ml Udcup PO 25 mg Q8H PRN Administration Itching Enoxaparin Sodium 40 mg 07/10/20 21:00 07/10/20 21:01 Enoxaparin Sodium 40 Mg/0.4 Ml Syringe SC 40 mg 2100 MEI Administration Guaifenesin/Codeine Phosphate 10 ml 07/09/20 10:06 07/09/20 22:35 Guaifenesin/Codeine 200 Mg/20 Mg 10 Ml Cup PO 10 ml Q6H PRN Administration Cough Labetalol HCl 20 mg 07/07/20 09:38 07/11/20 08:19 Labetalol Hcl 100 Mg/20 Ml Vial SLOW IVP 20 mg Q4H PRN Administration SBP Greater Than 170 Metoprolol Succinate 100 mg 07/09/20 09:00 07/11/20 08:08 Metoprolol Succinate Xl 100 Mg Tab PO 100 mg DAILY MEI Administration Ondansetron HCl 4 mg 07/07/20 09:20 07/08/20 21:24 Ondansetron Pf 4 Mg/2 Ml Vial IVP 4 mg Q6H PRN Administration Nausea/Vomiting Pantoprazole Sodium 40 mg 07/10/20 08:00 07/11/20 08:08 Pantoprazole 40 Mg Tab PO 40 mg QAM-WM MEI Administration Polyethylene Glycol 17 gm 07/11/20 09:00 07/11/20 08:09 Polyethylene Glycol 3350 17 Gm Packet PO Not Given DAILY MEI Senna/Docusate Sodium 1 tab 07/10/20 21:00 07/11/20 08:09 Senokot S 8.6-50 Mg Tab PO 1 tab BID MEI Administration Sodium Chloride 10 ml 07/07/20 21:00 07/11/20 08:09 Flush - Normal Saline 10 Ml Syringe IVF 10 ml Q12HR MEI Administration Tamsulosin HCl 0.8 mg 07/11/20 09:00 07/11/20 08:08 Tamsulosin Hcl 0.4 Mg Cap PO 0.8 mg DAILY MEI Administration Triamterene/Hydrochlorothiazide 1 tab 07/09/20 09:00 07/11/20 08:09 Triamterene/Hydrochlorothiazide 37.5 Mg/25 Mg Tablet PO 1 tab DAILY MEI Administration Hospitalist Exam Vitals: Vital Signs (12 hours) Temp Pulse Resp BP BP Pulse Ox 07/11/20 12:00 98.0 F 51 L 16 168/75 H 97 07/11/20 08:19 55 L 07/11/20 08:00 96 07/11/20 07:32 98.0 F 55 L 16 190/79 H 96 Weight Weight 217 lb General Appearance: NAD, awake alert Eye: PERRL ENT: normocephalic atraumatic, no oropharyngeal lesions Neck: supple, symmetric, no JVD Heart: RRR, no murmur, no gallops Respiratory: CTAB, no wheezes Gastrointestinal: soft, non-tender, non-distended Extremities: no cyanosis Skin: normal turgor Neurological: cranial nerve grossly intact Musculoskeletal: normal tone, normal strength, no muscle wasting Psychiatric: normal affect, normal behavior, A&O x 3 Hosp A/P - Plan #1. Gallstone pancreatitis -Status post laparoscopic cholecystectomy and ERCP with removal of stones from biliary tree -Symptoms resolved -LFTs trending down -Tolerating regular diet adequately 2. History of BPH and urinary retention -Patient having marked urinary retention with PVR over 500 on multiple occasions -Restarted Flomax at an increased dose of 0.8 mg daily -Urology consult initiated 3. Uncontrolled essential hypertension -SBP in the 190s despite being restarted on home meds-metoprolol XL and triamterene/HCTZ -Added Norvasc 10 mg daily to augment control 4. DVT prophylaxis -SCDs Discharge pending urology recommendations and optimization of essential hypertension
[2020-07-11 17:31] LABS: Bacteria/HPF None Seen HPF (None Seen); Bilirubin Negative (Negative); Blood, Urine Trace (Negative); Clarity Clear (Clear); Glucose, Urine (Dipstick) Normal (Negative); Ketone, Urine Negative (Negative); Leukocyte Negative Leu/uL (Negative); Nitrite Negative (Negative); Protein, Urine (Dipstick) Negative (Neg-Trace); Specific Gravity, Urine 1.006 (1.002-1.036); Squamous Epithelial 0-3 HPF (0-3); Urobilinogen Normal mg/dL (Less than 2); WBC/HPF 0-3 HPF (0-3); pH, Urine 7.5 (5.0-9.0)
[2020-07-11] MEDS ORDERED: hydrALAZINE 20 MG/ML VIAL SLOW IVP PRN (18:16)
--- NOTE | 2020-07-11 18:51 | PRG ---
DATE OF SERVICE: 07/11/2020 SUBJECTIVE: The patient was seen this afternoon during rounds. He was sitting up in a chair with no signs of acute distress. He just had lunch. He reports 2 bowel movements. Abdominal pain is controlled. Tolerating a diet. He continues to have urinary retention. He has been I and O cathed 5 times. OBJECTIVE: VITAL SIGNS: Temperature 98.0, pulse 51, respirations 16, oxygen saturation 97% on room air, blood pressure 168/75. GENERAL: A well-appearing elderly male, sitting up in a chair with no signs of acute distress. PULMONARY: Equal chest rise and fall. Clear breath sounds bilaterally. No signs of acute respiratory distress. CARDIAC: Regular rate and rhythm. GI: Abdomen is soft, nontender, nondistended. EXTREMITIES: 2+ pulses in all extremities. Gross motor and sensation are intact. No significant swelling noted. NEURO: GCS is 15. LABORATORY FINDINGS: White count 8.7, hemoglobin 12.3, hematocrit 36.0, platelets 198. Sodium 136, potassium 3.9, chloride 105, bicarb 24, BUN 13, creatinine 0.78, glucose 117, phosphorus 3.1, magnesium 1.9. Total bilirubin 1.2, AST 29, ALT 73, alkaline phosphatase 174. Lipase 56. DIAGNOSTIC FINDINGS: There are no new diagnostic findings to report. ASSESSMENT: 1. Postop day #3 status post laparoscopic cholecystectomy with intraoperative cholangiogram and endoscopic retrograde cholangiopancreatography with sphincterotomy and extraction of biliary colic for biliary pancreatitis. 2. Urinary retention, persistent. 3. History of hyperlipidemia, hypertension, and esophageal strictures. PLAN: Continue current diet and bowel regimen. Continue ambulating as much as possible. For urinary retention, we will add Avodart. We will place a Uriarte. UA to be completed. UA completed yesterday demonstrated no concern for infection. Cultures so far have not grown anything. Primary team has also consulted Urology for further recommendations. As far as Surgery is concerned, the patient is ready for discharge. His followup information has been placed on the chart. Job ID: [id number]
[2020-07-11] MEDS: Famotidine 20 MG TAB PO SCH (20:42)
[2020-07-11] MEDS: Enoxaparin Sodium 40 MG/0.4 ML SYRINGE SC SCH (20:42)
[2020-07-12 04:36] VITALS: TEMP 96.3
[2020-07-12] MEDS: Acetaminophen 500 MG TAB PO SCH ×2 (06:24→08:35)
[2020-07-12] MEDS: Triamterene/Hydrochlorothiazide 37.5 mg/25 mg Tablet PO SCH (08:33)
[2020-07-12] MEDS: Tamsulosin HCl 0.4 MG CAP PO SCH (08:34)
[2020-07-12] MEDS: Atorvastatin Calcium 20 MG TAB PO SCH (08:34)
[2020-07-12] MEDS: Polyethylene Glycol 3350 17 GM Packet PO SCH (08:38)
[2020-07-12] MEDS ORDERED: Dutasteride 0.5 MG CAP PO SCH (09:00)
[2020-07-12] MEDS ORDERED: Amlodipine 10 MG TAB PO SCH (09:00)
[2020-07-12] MEDS: Senokot S 8.6-50 MG TAB PO SCH (10:13)
[2020-07-12] MEDS: Famotidine 20 MG TAB PO SCH (10:14)
[2020-07-12] MEDS ORDERED: hydrALAZINE 25 MG TAB PO PRN (10:56)
[2020-07-12 13:06] VITALS: BP 142/78
--- NOTE | 2020-07-12 14:51 | PRG ---
DATE OF SERVICE: 07/12/2020 Mr. Lea is a 79-year-old man who is postoperative day #4, status post laparoscopic cholecystectomy with intraoperative cholangiogram. The patient has done well from surgical standpoint. He developed urinary retention and currently has an indwelling Uriarte catheter. He reports adequate pain control. He is tolerating diet, having normal bowel and urinary function. Abdominal examination reveals intact incisional wounds. The patient has no peritoneal signs on examination. He has remained hemodynamically stable and afebrile since surgery. From surgical standpoint, the patient may be discharged home at the discretion of the primary service. He requires with his Uriarte catheter and he is to follow up with Urology post discharge. He will see me in the Surgery Clinic in 2 weeks. Job ID: [id number]
--- NOTE | 2020-07-12 17:09 | PDOC.DS.DS ---
Provider Date of Admission: 07/07/20 08:15 Date of Discharge: 07/12/20 Admitting Provider: Andrew Reina Consultations: Gastroentrology, General Surgery Primary Care Physician: NICOLE KHAN JR, MD Course Hospital Course: Patient is 79-year-old male with hypertension, hyperlipidemia and esophageal stricture presented to the hospital on 07/07 with abdominal pain. The abdominal pain was mainly in the epigastric region as well as in the right upper quadrant. His initial vital signs show temperature 98, blood pressure 161/70, pulse rate of 66 with respiration of 18. His WBC count was 15.8 with lipase of 11,848, bilirubin of 5.9 with AST of 127, ALT [address] phosphatase 277[address] CT scan of the abdomen and pelvis showed enlargement of the common bile duct with apparent filling defect. It also showed a left adrenal mass. Right upper quadrant ultrasound showed gallbladder sludge with possible distal obstructing process. Please refer to the history and physical for further details. The patient was admitted to the hospital with a diagnosis of gallstone pancreatitis. He was evaluated by general surgery as well as gastroenterology. MRCP showed findings consistent with choledocholithiasis along with? Acute cholecystitis. He underwent ERCP on 07/08 followed by laparoscopic cholecystectomy. His LFTs have significantly improved. His lipase was normal at 56 yesterday with a total bilirubin of 1.2. Postoperatively he has done well except for urinary retention requiring a Gruber catheter placement. He will follow up with Dr. Rojas as outpatient for voiding trial. Patient declined home health care since his daughter is an RN. He appears stable for discharge. His urine cultures remain negative. Final diagnosis: Acute gallstone pancreatitiss/p ERCP and laparoscopic cholecystectomy this admission Acute cholecystitis with cholelithiasisPOA Urinary retention requiring Gruber catheter placement Hypertension Hyperlipidemia Nausea/vomiting/abdominal pain on admission History of esophageal stricture Left adrenal massan MRI of the abdomen with and without contrast for further evaluation is recommendedPCP to arrange and follow Resuscitation Status: 07/07/20 09:20 Resuscitation Status Routine Resuscitation Status: FULL: Full Resuscitation Lab Results: 07/11/20 07:25 07/11/20 07:25 Abnormal Lab Results - Last 48 hrs 07/11/20 07:25: ALT 73 H, Alkaline Phosphatase 174 H 07/11/20 07:25: RBC 3.92 L, Hgb 12.3 L, Hct 36.0 L, MCH 31.3 H, Neutrophils % 77.9 H, Lymphocytes % 11.5 L, Neutrophils # 6.8 H, Lymphocytes # 1.0 L, Monocytes # 0.8 H 07/11/20 17:05: Urine Blood Trace A, Urine RBC 11-20 A Microbiology - Entire Visit 07/10/20 02:00 Urine Straight Catheter Urine Culture - Final NO GROWTH AT 48 HOURS 07/11/20 17:05 Urine gruber catheter Urine Culture - Preliminary NO GROWTH AT 24 HOURS Vitals: Vital Signs (12 hours) Temp Pulse Resp BP BP Pulse Ox 07/12/20 13:00 18 142/78 H 98 07/12/20 08:51 96 07/12/20 08:35 60 164/80 H 07/12/20 07:00 96.3 F L 55 L 18 164/80 H 96 Weight Weight 217 lb Physical Exam: The patient was seen and examined on the day of discharge. General Appearance: NAD Respiratory: no wheezes, no ronchi Cardiovascular: RRR, no gallops Gastrointestinal: soft, normal bowel sounds Extremities: no cyanosis Neurological: no new deficit Plan Prescriptions: Amlodipine Besylate [amLODIPine Besylate] 5 mg PO BID #60 tablet hydrALAZINE [Apresoline] 25 mg PO TID PRN #60 tab PRN Reason: Sbp Greater Than 160 Dutasteride [Avodart] 0.5 mg PO DAILY #30 cap Home Medications: Medication Instructions Recorded Confirmed Type Aspirin [Ecotrin Low Strength] 81 mg PO DAILY 07/07/20 07/07/20 History Esomeprazole Magnesium [NexIUM] 40 mg PO QAM-WM 07/07/20 07/07/20 History Metoprolol Succinate [Toprol Xl] 100 mg PO DAILY 07/07/20 07/07/20 History Multivit-Min/FA/Lycopen/Lutein 1 tab PO DAILY 07/07/20 07/07/20 History [Centrum Silver Men Tablet] Simvastatin [Zocor] 40 mg PO DAILY 07/07/20 07/07/20 History Tamsulosin HCl [Flomax] 0.4 mg PO DAILY 07/07/20 07/07/20 History Triamterene/Hydrochlorothiazid 1 each PO DAILY 07/07/20 07/07/20 History [Triamterene-Hctz 37.5-25 mg Tb] Amlodipine Besylate [amLODIPine 5 mg PO BID #60 tablet 07/12/20 Rx Besylate] Dutasteride [Avodart] 0.5 mg PO DAILY #30 cap 07/12/20 Rx hydrALAZINE [Apresoline] 25 mg PO TID PRN #60 tab 07/12/20 Rx Allergies: No Known Allergies Allergy (Verified 07/07/20 10:54) Equipment/Supplies:: [facility] Referrals: Salvador Rojas MD [Active] - 7 Days (Please call for appt) Nicole Khan Jr, MD [Primary Care Provider] - 7 Days Yogesh Latif DO [Active] - (Follow up with trauma clinic, Dr. Latif, on 07/22/20 at 10:30 AM. Complete lab work before appointment. Call to set up lab work and with any questions. ) Disposition: HOME Quality CORE MEASURES:: N/A
== END 2020-07-12 14:08 | disposition home or self-care (01) | DRG 417 ==
LOC: ERS 05:21 → T4-A 08:15
PROVIDERS: ADMIT Internal Medicine; ATTEND Internal Medicine
PROC: 0FT44ZZ Resection of Gallbladder, Percutaneous Endoscopic Approach (ICD-10-PCS; principal; 2020-07-08)
PROC: BF101ZZ Fluoroscopy of Bile Ducts using Low Osmolar Contrast (ICD-10-PCS; 2020-07-08)
PROC: 0FC98ZZ Extirpation of Matter from Common Bile Duct, Via Natural or Artificial Opening Endoscopic (ICD-10-PCS; 2020-07-08)
DX: K80.62 Calculus of gallbladder and bile duct with acute cholecystitis without obstruction (principal); K85.10 Biliary acute pancreatitis without necrosis or infection; E78.5 Hyperlipidemia, unspecified; K22.2 Esophageal obstruction; I10 Essential (primary) hypertension; N40.1 Benign prostatic hyperplasia with lower urinary tract symptoms; R33.8 Other retention of urine; Z20.822 Contact with and (suspected) exposure to COVID-19; Z90.89 Acquired absence of other organs; Z79.82 Long term (current) use of aspirin; Z79.899 Other long term (current) drug therapy; Z98.890 Other specified postprocedural states
CPT/HCPCS: 36415; 36416; 47532; 71045; 71250; 74177; 74183; 74330; 76705; 80048; 80053; 80061; 80076; 81001; 83690; 83735; 84100; 84484; 85007; 85025; 85027; 85610; 85730; 86850; 86900; 86901; 87086; 87635; 88304; 93005; 96374; 96375; 96376; A9579; J0171; J0360; J0690; J1100; J1200; J1610; J1650; J1885; J2270; J2405; J2704; J3010; Q0163; Q9967; S0020; S0028; U0003; U0005

== ENCOUNTER 2022-12-15 12:01 | Outpatient (CLI) | payer MEDICARE, BC | END 2022-12-15 12:02 | disposition home or self-care (01) | LOC: RAD 12:01 | PROVIDERS: ATTEND Family Medicine | DX: R05.3 Chronic cough (principal) | CPT/HCPCS: 71046 ==

== ENCOUNTER 2023-03-21 08:30 | Outpatient (CLI) | payer MEDICARE, BC | END 2023-03-21 08:31 | disposition home or self-care (01) | LOC: NM 08:30 | PROVIDERS: ATTEND Psychiatry & Neurology Neurology | DX: G20.C Parkinsonism, unspecified (principal); R94.8 Abnormal results of function studies of other organs and systems | CPT/HCPCS: 78803; A9584 ×2 ==